=== PATIENT | male | born 1975 | race Two or more races ===

== ENCOUNTER 2022-11-03 20:01 | Emergency (ER) | payer OTHER ==
[~2022-11-03] VITALS: Ht 175.3 cm; Wt 85.0 kg
[2022-11-03 20:03] VITALS: BP 0/0; PULSE 0; RESP 0
== END 2022-11-03 23:28 ==
LOC: EMS 20:01
DX: I46.9 Cardiac arrest, cause unspecified (principal)
CPT/HCPCS: 31500; 92950; 99285; Z7502